=== PATIENT | male | born 1965 | race African-American/Black ===

== ENCOUNTER → 2016-10-27 | Outpatient (REF) | payer MEDICAID ==
[~2016-10-27] MED LIST: HYDR-2808 PO
== END ==
LOC: M SFHCPLAZ 16:21
PROVIDERS: ATTEND Physician Assistant
DX: R73.01 Impaired fasting glucose (principal); E78.4 Other hyperlipidemia; Z12.5 Encounter for screening for malignant neoplasm of prostate; E53.8 Deficiency of other specified B group vitamins

== ENCOUNTER → 2016-11-20 | Outpatient (CLI) | payer MEDICAID | LOC: M OUTALCOH 14:09 | PROVIDERS: ATTEND Psychiatry & Neurology Psychiatry | DX: Z13.9 Encounter for screening, unspecified (principal) ==

== ENCOUNTER → 2017-06-15 | Outpatient (REF) | payer OTHER | LOC: M SFHCPLAZ 07:42 | DX: E78.2 Mixed hyperlipidemia (principal); Z13.1 Encounter for screening for diabetes mellitus ==

== ENCOUNTER → 2017-10-05 | Outpatient (REF) | payer MEDICARE ==
[2017-10-05 13:25] LABS: ALBUMIN 3.7 GM/DL (3.2-5.2); ALBUMIN/GLOBULIN RATIO 1.03 (1.00-1.93); ALKALINE PHOSPHATASE 74 U/L (45-117); ALT/SGPT 54 U/L (12-78); ANION GAP 6 MEQ/L (8-16); AST/SGOT 32 U/L (7-37); BILIRUBIN,TOTAL 0.4 MG/DL (0.2-1.0); BLOOD UREA NITROGEN 12 MG/DL (7-18); CALCIUM LEVEL 8.4 MG/DL (8.5-10.1); CARBON DIOXIDE LEVEL 27 MEQ/L (21-32); CHLORIDE LEVEL 109 MEQ/L (98-107); CHOLESTEROL LEVEL 188 MG/DL (<200); CHOLESTEROL RISK RATIO 5.696 (<5); CREATININE FOR GFR 1.11 MG/DL (0.70-1.30); GLOMERULAR FILTRATION RATE > 60.0 (>56); GLUCOSE, FASTING 101 MG/DL (70-100); HDL CHOLESTEROL 33 MG/DL (>40); LDL CHOLESTEROL 128.2 MG/DL (<100); NON-HDL-C 155 MG/DL; POTASSIUM SERUM 4.2 MEQ/L (3.5-5.1); SODIUM LEVEL 142 MEQ/L (136-145); TOTAL PROTEIN 7.3 GM/DL (6.4-8.2); TRIGLYCERIDES LEVEL 134 MG/DL (<150)
[2017-10-05 14:03] LABS: ESTIMATED AVERAGE GLUCOSE 140 MG/DL (60-110); HEMOGLOBIN A1c 6.5 %
== END ==
LOC: M SFHCPLAZ 11:50
DX: E78.2 Mixed hyperlipidemia (principal); Z13.1 Encounter for screening for diabetes mellitus; Z79.899 Other long term (current) drug therapy
CPT/HCPCS: 80053

== ENCOUNTER → 2017-10-13 | Outpatient (REF) | payer MEDICARE, MEDICAID ==
[2017-10-13 16:41] LABS: MALB URINE SIEMENS 17.1 MG/L; MAU/CREAT RATIO 7.9 MCG/MG (0.0-30.0)
== END ==
LOC: M SFHCPLAZ 13:38
DX: E11.9 Type 2 diabetes mellitus without complications (principal)
CPT/HCPCS: 82043

== ENCOUNTER → 2018-01-06 | Outpatient (REF) | payer MEDICARE, MEDICAID ==
[2018-01-06 14:14] LABS: ESTIMATED AVERAGE GLUCOSE 123 MG/DL (60-110); HEMOGLOBIN A1c 5.9 %
== END ==
LOC: M SFHCPLAZ 09:33
DX: E11.9 Type 2 diabetes mellitus without complications (principal)
CPT/HCPCS: 83036

== ENCOUNTER 2018-07-16 22:55 | Inpatient (IN) | payer MEDICAID, MEDICARE, SELFPAY ==
[~2018-07-16] VITALS: Ht 185.4 cm; Wt 111.9 kg
[2018-07-17] VITALS (9 sets, daily range): BP systolic 122–166; BP diastolic 68–95
[2018-07-17] MEDS ORDERED: ONDANSETRON 4MG/2ML VIAL (J2405) IV ONE
[2018-07-17 00:15] LABS: HEMATOCRIT 41.4 % (42.0-52.0); HEMOGLOBIN 13.3 g/dl (13.5-17.5); MEAN CORPUSCULAR HGB CONC 32.1 g/dl (32.0-36.5); MEAN CORPUSCULAR VOLUME 74.6 fl (80.0-96.0); PLATELET COUNT, AUTOMATED 258 10^3/uL (150-450); RED BLOOD COUNT 5.55 10^6/uL (4.30-6.10); WHITE BLOOD COUNT 10.6 10^3/uL (4.0-10.0)
[2018-07-17] MEDS ORDERED: NS 1,000 ML IV SCH (00:29)
[2018-07-17 00:30] LABS: BLOOD UREA NITROGEN 11 MG/DL (7-18); CALCIUM LEVEL 8.6 MG/DL (8.5-10.1); CARBON DIOXIDE LEVEL 21 MEQ/L (21-32); CHLORIDE LEVEL 105 MEQ/L (98-107); CREATININE FOR GFR 1.24 MG/DL (0.70-1.30); GLOMERULAR FILTRATION RATE > 60.0 (>56); GLUCOSE, FASTING 98 MG/DL (70-100); POTASSIUM SERUM 3.6 MEQ/L (3.5-5.1); SODIUM LEVEL 142 MEQ/L (136-145)
[2018-07-17] MEDS ORDERED: ACETAMINOPHEN TAB 650MG DOSE (2X325MG) PO PRN ×2 (00:30→12:30)
[2018-07-17] MEDS ORDERED: MORPHINE 4 MG/ML 1ML VIAL/SYRINGE (J2270) IV ONE ×2 (00:30)
[2018-07-17] MEDS ORDERED: ONDANSETRON 4MG/2ML VIAL (J2405) IV PRN ×3 (00:30→12:30)
[2018-07-17] MEDS ORDERED: ceFAZolin SOD 1 GM in D5W MINI-BAG PLUS 50 ML IV SCH (00:30)
[2018-07-17] MEDS ORDERED: BISACODYL 10 MG SUPP PR PRN (00:30)
[2018-07-17] MEDS ORDERED: KETOROLAC 30 MG/ML VIAL (J1885) IV PRN (00:30)
[2018-07-17] MEDS ORDERED: NORCO, ANEXSIA 5/325MG TABLET (HYDROcodone/ACETAMINOPHEN) PO PRN ×2 (00:30)
[2018-07-17] MEDS: MORPHINE 4 MG/ML 1ML VIAL/SYRINGE (J2270) IV PRN ×4 (01:25→08:25)
[2018-07-17] MEDS: LR 1,000 ML IV SCH ×4 (02:00→18:13)
[2018-07-17] MEDS ORDERED: ceFAZolin SOD 1 GM in D5W MINI-BAG PLUS 50 ML IV ONE (06:00)
--- NOTE | 2018-07-17 08:12 | REP ---
Portable chest, 12:19 a.m., single AP view, the patient semi upright: Comparison is 08/17/2010. The right hilus appears enlarged. I would recommend follow-up CT to evaluate for adenopathy/mass. The lung alvarado otherwise clear. Cardiac size is normal for positioning. Left hilus, mediastinum and skeletal structures are unremarkable. Impression: Enlarged right hilus. Follow-up CT is recommended. Electronically Signed by Tyler Richards MD 07/17/2018 08:04 A
--- NOTE | 2018-07-17 08:15 | REP ---
Left femur six views: There is a fracture at the junction of the proximal middle thirds with one shaft width anterior displacement of the proximal fracture fragment. The Electronically Signed by Tyler Richards MD 07/17/2018 08:08 A
[2018-07-17 08:50] LABS: INR 1.07; PARTIAL THROMBOPLASTIN TIME 27.9 SECONDS (25.4-37.6)
[2018-07-17] MEDS ORDERED: DOCUSATE SODIUM 100 MG CAP PO SCH (09:00)
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
[2018-07-17] MEDS ORDERED: TRANEXAMIC ACID 100 MG/ML 10ML VIAL As Ordered ONE (09:30)
[2018-07-17] MEDS ORDERED: BUPIVACAINE/EPIN 0.5% 30 ML VIAL As Ordered ONE (09:30)
[2018-07-17] MEDS ORDERED: dexameTHASONE 4 MG/ML 1ML VIAL (J1100) As Ordered ONE (09:47)
[2018-07-17] MEDS ORDERED: ceFAZolin 2 GM/D5W 50 ML IV BAG (J0690 PER 500MG) IV ONE (10:14)
[2018-07-17] MEDS ORDERED: fentaNYL 100 MCG/2 ML INJECTION (J3010) As Ordered ONE ×2 (10:15→12:10)
[2018-07-17] MEDS ORDERED: PROPOFOL 200 MG/20 ML VIAL As Ordered ONE (10:15)
[2018-07-17] MEDS ORDERED: KETAMINE HCL 200 MG/20 ML VIAL As Ordered ONE (10:15)
[2018-07-17] MEDS ORDERED: ONDANSETRON 4MG/2ML VIAL (J2405) As Ordered ONE (10:15)
[2018-07-17] MEDS ORDERED: MIDAZOLAM INJ 2 MG/2 ML VIAL (J2250) As Ordered ONE (10:15)
[2018-07-17] MEDS ORDERED: LIDOCAINE 2% INJ 100 MG/5 ML SDV (FOR ANES.) As Ordered ONE (10:15)
[2018-07-17] MEDS ORDERED: ROCURONIUM BROMIDE 50 MG/5 ML VIAL As Ordered ONE ×2 (10:15→10:18)
[2018-07-17] MEDS ORDERED: HYDROmorphone HCL 2 MG/ML 1ML VIAL (J1170) As Ordered ONE (10:22)
[2018-07-17] MEDS ORDERED: SUGAMMADEX SODIUM 500 MG/5 ML VIAL (BRIDION) As Ordered ONE (10:28)
[2018-07-17] MEDS ORDERED: PHENYLephrine HCL 500 MCG/5 ML (100MCG/ML) SYRINGE (J2370) As Ordered ONE (11:23)
[2018-07-17] MEDS ORDERED: PERCOCET 5MG/325MG TAB As Ordered ONE (12:09)
[2018-07-17] MEDS ORDERED: MEPERIDINE INJ 25 MG/ML VIAL (J2175) As Ordered ONE (12:14)
[2018-07-17] MEDS ORDERED: fentaNYL 100 MCG/2 ML INJECTION (J3010) IV PRN (12:15)
[2018-07-17] MEDS ORDERED: METOCLOPRAMIDE INJ 10MG/2ML VIAL (J2765) IV PRN (12:15)
[2018-07-17] MEDS ORDERED: PERCOCET 5MG/325MG TAB PO PRN (12:15)
[2018-07-17] MEDS ORDERED: LR 1,000 ML IV SCH (12:15)
[2018-07-17] MEDS: MEPERIDINE INJ 25 MG/ML VIAL (J2175) IV PRN ×2 (12:15→12:20)
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
[2018-07-17] MEDS ORDERED: DOCUSATE SODIUM 100 MG CAP PO PRN (12:30)
[2018-07-17] MEDS ORDERED: ONDANSETRON 4 MG TAB (S0181) PO PRN (12:30)
[2018-07-17] MEDS ORDERED: MORPHINE SULFATE ORAL SOLN 10 MG/5 ML UD PO PRN (12:30)
--- NOTE | 2018-07-17 13:09 | REP ---
Left hip intraoperative fluoroscopic views: There are two views. The proximal and distal ends of an intramedullary kerwin in the left femur demonstrate the kerwin to be in satisfactory position alignment on these two views. Fluoroscopic exposure time is 4 minutes and 57 seconds. Fluoroscopic images are performed last image hold technology. These images require no additional radiation. Electronically Signed by Tyler Richards MD 07/17/2018 01:00 P
[2018-07-17] MEDS: PERCOCET 5MG/325MG TAB PO PRN ×2 (16:15→21:15)
[2018-07-18] MEDS: PERCOCET 5MG/325MG TAB PO PRN ×3 (01:21→09:18)
[2018-07-18 02:00] VITALS: BP 131/75
[2018-07-18 06:00] VITALS: BP 140/68
[2018-07-18] MEDS ORDERED: CYCL10TA PO (06:59)
[2018-07-18] MEDS ORDERED: PERC5TAB12 PO (06:59)
[2018-07-18] MEDS ORDERED: XARE10TA PO (06:59)
[2018-07-18] MEDS ORDERED: CYCLOBENZAPRINE 10 MG TAB PO SCH (09:00)
[2018-07-18] MEDS: MORPHINE 4 MG/ML 1ML VIAL/SYRINGE (J2270) IV PRN ×2 (09:55→12:08)
[2018-07-18 10:00] VITALS: BP 146/91
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
[2018-07-18] MEDS ORDERED: RIVAROXABAN 10 MG TAB (XARELTO) PO SCH (18:00)
== END 2018-07-18 12:15 | disposition home or self-care (01) | DRG 482 ==
LOC: M ED 22:55 → M ED INP 07-17 00:29 → M MS5PR 07-17 02:00
PROVIDERS: ADMIT Orthopaedic Surgery Sports Medicine; ATTEND Orthopaedic Surgery Sports Medicine
PROC: 0QS706Z Reposition Left Upper Femur with Intramedullary Internal Fixation Device, Open Approach (ICD-10-PCS; principal; 2018-07-17 08:08)
DX: S72.22XA Displaced subtrochanteric fracture of left femur, initial encounter for closed fracture (principal); Y09 Assault by unspecified means; W00.0XXA Fall on same level due to ice and snow, initial encounter; Y92.89 Other specified places as the place of occurrence of the external cause; M62.838 Other muscle spasm